=== PATIENT | female | born 1980 ===

== ENCOUNTER 2016-09-08 08:57 | Inpatient (IN) | payer MEDICAID, SELFPAY ==
[2016-09-08 10:20] VITALS: BMI 44.3
[2016-09-08] MEDS ORDERED: Lactated Ringer's 1,000 ML IV SCH (11:49)
[2016-09-08 12:36] LABS: HEMATOCRIT 35.3 % (34.0-47.0); MEAN CELL VOLUME 77.9 fl (81.0-99.0); MEAN CORPUSCULAR HGB CONC 32.1 g/dL (33.0-37.0); RED CELL DISTRIBUTION WIDTH 16.3 % (11.5-14.5); WHITE BLOOD COUNT 6.4 K/uL (4.8-10.8)
--- NOTE | 2016-09-08 12:45 | OBHP ---
Datetime: 09/08/2016 10:14 IP Adm Impression: Term, intrauterine ; Intact Membranes IP Chief Complaint Other: RLQ Pain IP Admit Plan: Observation/Evaluation Admit Comment, IP Provider: 36 y/o @ 39.4 weeks via 12 week u/s dating presents complaining of RLQ. Pain started at 5:30am while the pt was sleeping. Denies inciting event. Pain is 7/10, constant, located in the RLQ, dull in character, radiates to her anterior right thigh and she is unable to yvette ntify alleviating/exacerbating factors. 1st episode of such pain. Last sexual activity was 1 week ago . Associated with mild nausea. Denies PO intake today. Last BM last night. Denies fever/chills, heada ches, visual disturbances, CP/SOB, V/D/C, urinary symptoms. Denies VB/LOF/CTX and reports good FM. PMD: CFH POBHx: NSVDx2, FT, Hx of macrosomnia. PMHx: morbid obesity PsurgHx: none Meds: PNVs ALL: NKDA Social: denies ETOH, tobacco, drug abuse A/P: 36 y/o @ 39.4 weeks via 12wk u/s dating for evaluation of RLQ pain. -likely secondary to position -UA -CBC -Tylenol 650mg PRN pain -observation Epi Nielsen MD PGY1 @ 10:56am [facility] ADDENDUM: pt seen _ examined by me. Agree with above. s: pt states rlq pain beginning in midportion of abd and extending inferiroly toward groin. she h ad 1 episode of nausea today, no emesis.. I: As above h/o of Rt Ov Cyst with us on 01/31 1.9cm. MFM US 9cm. MRI unable to visualize Rt side Pain Most likely 2ndary to fetus positon P: labs pending. Pelvic Type - PN: Adequate Extremities - PN: Normal Abdomen - PN: Normal Back - PN: Normal Breast - PN: Normal Lungs - PN: Normal Heart - PN: Normal Thyroid - PN: Normal Neurologic - PN: Normal HEENT - PN: Normal General - PN: Normal FHR - Baseline A Provider: 130 Membranes, Provider: Intact Comments, ACOG Physical Exam: abd: +BS, soft, no tenderness in RLQ, remainder of abdomen unremarkabl e. ND, no guarding/rigidity. Obturator/Psoas/Rovsings negative. back: neg CVA tenderness b/l Transvag us 01/31:5.6wks; 1.9cm rt complex ovar cyst Growth us 04/03:16.3wkes; 8.94 x 6.22 x8.86cm right ovarian cyst Pelvic MRI on 04/17: unable to visualize cyst IP Hx Assessment: The History has been Reviewed and is Current Vital Signs Provider: Reviewed; Within Normal Limits IP Chief Complaint: Maternal discomfort NICHD Variability Prov Fetus A: Moderate 6-25bpm NICHD Accel Fetus A IP Provider: 15X15 FHR Category Provider Fetus A: Category I NICHD Decel Fetus A IP Provider: None Dilatation, Provider: 1cm Effacement, Provider: thick Station, Provider: high Genitourinary Exam: Normal DTRs - PN: Normal
[2016-09-08] MEDS: Lactated Ringer's 1,000 ML IV SCH ×3 (13:00→18:30)
[2016-09-08 13:02] LABS: RBC URINE 27 /hpf (0-3); URINE BACTERIA RARE (<OCC); URINE BILIRUBIN NEGATIVE (NEGATIVE); URINE BLOOD MODERATE (NEGATIVE); URINE COLOR AMBER (YELLOW); URINE GLUCOSE (UA) NEG (Normal); URINE KETONE NEGATIVE (NEGATIVE); URINE LEUKOCYTE ESTERASE LARGE Leu/uL (Negative); URINE PROTEIN 30 mg/dL (NEGATIVE); URINE UROBILINOGEN 0.2-1.0 mg/dL (0.2-1.0); WBC CLUMPS FEW /hpf; WBC URINE 281 /hpf (0-5)
[2016-09-08 14:07] LABS: RBC URINE 7 /hpf (0-3); URINE BACTERIA FEW (<OCC); URINE BILIRUBIN NEGATIVE (NEGATIVE); URINE BLOOD NEGATIVE (NEGATIVE); URINE CALCIUM OXALATE CRYSTALS RARE /hpf (<OCC); URINE COLOR YELLOW (YELLOW); URINE GLUCOSE (UA) NEG (Normal); URINE KETONE 20 mg/dL (NEGATIVE); URINE LEUKOCYTE ESTERASE LARGE Leu/uL (Negative); URINE PROTEIN NEGATIVE (NEGATIVE); URINE UROBILINOGEN 0.2-1.0 mg/dL (0.2-1.0); WBC URINE 66 /hpf (0-5)
[2016-09-08] MEDS ORDERED: Amoxicillin-Clav 500-125 mg Tab PO SCH (14:29)
[2016-09-08] MEDS ORDERED: cefTRIAXone (Rocephin) 1 gm Inj IM ONE (15:46)
--- NOTE | 2016-09-08 15:47 | US ---
PROCEDURE: Renal ultrasound dated 09/08/2016 HISTORY: Possible sible R renal calculus. Hematuria. Patient also has history of prior right ovarian cyst. COMPARISON: None available. TECHNIQUE: Sonogram of the kidneys. FINDINGS: RIGHT KIDNEY: Measures approximately 12.3 x 4.7 x 5.4 cm. The slightly fullness of the right renal collecting system however no definitive shadowing calculi identified. Note however the possibility of a distal ureteral calculi cannot be excluded. Normal in size, contour and echogenicity. No the solid mass lesion or hydronephrosis visualized. LEFT KIDNEY: Measures approximately 12.8 x 4.6 x 4.8 cm Normal in size, contour and echogenicity. No stone, solid mass lesion or hydronephrosis visualized. OTHER FINDINGS: There is a elliptical shaped fluid collection in the right aspect of the pelvis that measures approximately 12.9 x 6.4 x 5.5 cm. This could represent right ovarian cyst. IMPRESSION: Mild fullness right renal collecting system however no definitive shadowing calculi seen. Note the possibility of a distal ureteral calculus cannot be excluded. Large elliptical shaped cystic focus right aspect of the pelvis possibly representing a large right ovarian cyst. This case was discussed with OB hospitalist Dr. Tang at approximately 3:44 p.m. with written down and read back verification.
[2016-09-08] MEDS ORDERED: Nalbuphine 20 mg/ml Inj (1 ml) IVP PRN (16:08)
[2016-09-08 17:00] VITALS: BP 123/68; PULSE 63; RESP 18; TEMP 97.7; O2SAT 99
[2016-09-08] MEDS ORDERED: Lactobacillus Acidophilus 500 MU Cap PO SCH (17:00)
--- NOTE | 2016-09-08 22:28 | OBPN ---
Datetime: 09/08/2016 15:52 IP Progress Plan: Induction Membranes, Provider: Intact FHR - Baseline A Provider: 130 Presentation-Admit: Vertex IP Progress Note Comment: s: pt denies right sided abd pain. rates ctxs 04/27. denies sorm I: 39.4wks Induction UTI Candidiasi P: for cytotec #2 On Ceftriaxone Tx candidiasis PP Vital Signs Provider: Reviewed; Within Normal Limits NICHD Accel Fetus A IP Provider: 15X15 NICHD Variability Prov Fetus A: Moderate 6-25bpm Dilatation, Provider: 1 Effacement, Provider: 60 Station, Provider: -3 NICHD Decel Fetus A IP Provider: None Datetime: 09/08/2016 10:14 FHR Category Provider Fetus A: Category I
[2016-09-09] MEDS: Lactated Ringer's 1,000 ML IV SCH (01:41)
[2016-09-09] MEDS ORDERED: Oxytocin 30 units/LR 500ML 30 U/500 ML BAG IV SCH (07:00)
[2016-09-09] MEDS ORDERED: Oxytocin 30 units/LR 500ML 30 U/500 ML BAG IV ONE ×4 (07:00→12:42)
[2016-09-09] MEDS ORDERED: Oxycodone/Acetaminophen 5/325 mg Tab PO PRN ×2 (12:10→12:42)
[2016-09-09] MEDS ORDERED: Nalbuphine 20 mg/ml Inj (1 ml) IVP PRN (12:42)
[2016-09-09] MEDS ORDERED: Lactated Ringer's 1,000 ML IV SCH (12:42)
--- NOTE | 2016-09-09 12:54 | OBDS ---
DELIVERY PERSONNEL Delivery Doctor: Abby Munson MD Traveling Sales Executive: Brittany Way RN Anesthesiologist: Dr Biggs MATERNAL INFORMATION Delivery Anesthesia: Local; Epidural Medications in Delivery: rocephin, nubain, cytotec, augmentin, pitocin, tylenol Estimated Blood Loss (ml): 300 Placenta Cultured: No Maternal Complications: None RN Comments: pt delivered viable baby girl, apgars were 9 and 9. [facility] dried [facility]. pt was repaired for 2nd degree lac. pitocin infusing @999ml/hr. infant placed on warmer. pt and remained in stable condition. pt VSS. given to pt for skin to skin and latching. Provider Comments: Delivered a live baby girl at 11:55 AM the baby was bulb suctioned on the perineu m and transferred to maternal chest. The cord was clamped and cut 3 vessels noted cord blood was obta ined and sent to the lab. The placenta was delivered at 1159 intact, the estimated blood loss was 300 mL. Pitocin was administered to assist in uterine involution. There was second-degree laceration whi ch was repaired with 2-0 Rapide. The mother tolerated the procedure well and the baby went to the [facility] baby nursery with Apgars of 9 and 9 weighing 3700 g LABOR SUMMARY EDC: 09/11/2016 00:00 No. Babies in Womb: 1 Attempted: No Labor Anesthesia: Epidural LABOR INFORMATION Reason for Induction: Not Applicable Onset of Labor: 09/09/2016 10:00 Complete Dilatation: 09/09/2016 11:45 Cervical Ripening Agents: Cytotec @ (Annotations: 50mcg given orally per MD's order. ) Oxytocin: Augmentation Group B Beta Strep: Negative Steroids Given: None Reason Steroids Not Administered: Not Applicable MEMBRANES Membranes Rupture Method: Artificial Rupture of Membranes: 09/09/2016 10:00 Length of Rupture (hrs): 1.90 Amniotic Fluid Color: Clear Amniotic Fluid Amount: Small Amniotic Fluid Odor: Normal STAGES OF LABOR Stage 1 hrs: 1 Stage 1 min: 45 Stage 2 hrs: 0 Stage 2 min: 9 Stage 3 hrs: 0 Stage 3 min: 5 Total Time in Labor hrs: 1 Total Time in Labor min: 59 VAGINAL DELIVERY Laceration Extension: Second Degree Laceration Type: Perineal Laceration Repair: Yes Initial Vag Sponge Count: 5 Final Vag Sponge Count: 5 Initial Vag Sharps Count: 2 Final Vag Sharps Count: 2 Sponge Count Correct: Yes Sharps Count Correct: Yes BABY A INFORMATION Infant Delivery Date/Time: 09/09/2016 11:54 Method of Delivery: Vaginal Born in Route : No Forceps: N/A SHOULDER DYSTOCIA BABY A Delivery Date/Time: 09/09/2016 11:54 PRESENTATION/POSITION BABY A Presentation: Cephalic PLACENTA INFORMATION BABY A Placenta Delivery Time : 09/09/2016 11:59 Placenta Method of Delivery: Spontaneous Placenta Status: Delivered SCORES BABY A Heart Rate 1 min: >100 bpm Resp Effort 1 min: Good Cry Reflex Irritability 1 min: Cough or Sneeze or Pulls Away Muscle Tone 1 min: Active Motion Color 1 min: Body [place], Extremities Blue Resuscitation Effort 1 min: N/A SCORE 1 MIN: 9 Heart Rate 5 min: >100 bpm Resp Effort 5 min: Good Cry Reflex Irritability 5 min: Cough or Sneeze or Pulls Away Muscle Tone 5 min: Active Motion Color 5 min: Body [place], Extremities Blue Resuscitation Effort 5 min: N/A SCORE 5 MIN: 9 INFANT INFORMATION BABY A Gestational Age at Delivery: 39.0 Gestational Status: Term Outcome : Liveborn Condition : Stable Sex: Female WEIGHT/LENGTH BABY A Infant Birthweight (gms): 3700 Weight (lb): 8 Weight (oz): 2 CORD INFORMATION BABY A No. Cord Vessels: 3 Cord Blood Taken: Yes Infant Suction: Mouth
[2016-09-09] MEDS: Lactobacillus Acidophilus 500 MU Cap PO SCH (17:04)
[2016-09-09] MEDS: Amoxicillin-Clav 500-125 mg Tab PO SCH (21:02)
[2016-09-10 05:33] LABS: BASO % 0.3 % (0.0-2.0); EOS # 0.4 K/uL (0.0-0.7); HEMATOCRIT 24.1 % (34.0-47.0); LYMPH # 2.4 K/uL (1.0-4.3); LYMPH % 29.3 % (20.0-40.0); MEAN CELL VOLUME 77.7 fl (81.0-99.0); MEAN CORPUSCULAR HGB CONC 32.1 g/dL (33.0-37.0); MONO # 0.7 K/uL (0.0-0.8); MONO % 8.3 % (0.0-10.0); NEUT # 4.7 K/uL (1.8-7.0); NEUT % 57.1 % (50.0-75.0); WHITE BLOOD COUNT 8.2 K/uL (4.8-10.8)
--- NOTE | 2016-09-10 08:54 | OBPPN ---
Datetime: 09/10/2016 07:11 PP Pain Prov: Within normal limits PP Nausea Prov: Denies PP Flatus Prov: Yes PP BM Prov: No PP Breasts Prov: Normal PP Heart Prov: Normal PP Lungs Prov: Normal PP Abdomen/Uterus Prov: Normal PP Lochia Prov: Normal PP Vulva/Perineum Prov: Normal PP CVA Tenderness Prov: Normal PP Extremities Prov: Normal PP C/S Incision Prov: Not Applicable PP Progress Prov: Normal PP Comments Phys Exam Prov: abd: +BS, soft, Mild tenderness to palpation around fundus. ND, no guard ing/rigidity. Fundus firm below level of umbilicus. back: neg CVA tenderness b/l ext: calves NT b/l, homans neg b/l PP Impression Prov: Normal progression PP Plan Prov: Continue present management PP Progress Note Prov: pt seen and examined at bedside this morning. No acute events overnight. Pt r eports mild abdominal pain that is controlled with PO Motrin. OOB/ambulating without difficulty. Tole rtating PO intake without difficulty. +flatus, no BM yet. without difficulty, supplemen ting with bottlefeeding prn. Lochia is equal to menses. Voiding w/o difficulty. Pt denies fever/chill s, headaches, visual disturbances, CP/SOB/palpitations, N/V/D/C, urinary symptoms, numbness/tingling, leg pain. A/P: 36 y/o now s/p on 09/09/16, afebrile, pain controlled with medicaitons, tolerating PO intake, doing well on PPD#1. -continue current mangement -Ibuprofen 600mg PO PRN Q6H for pain -Continue Augmentin PO BID for UTI -reg diet -Ambulation encouraged -continue -anticipate DC on 09/11/2016 Epi Nielsen MD PGY1 @ 7:18am Addendum by Dr. Reyes: Patient seen and evaluated independentlyand I agree with the above. patient is a day 1, recovering well, continue orders, possible discharge for tomorrow Vital Signs Provider PP: Reviewed; Within Normal Limits
[2016-09-10] MEDS ORDERED: Benzocaine/Menthol SPRAY TOP PRN (09:38)
[2016-09-10] MEDS: Lactobacillus Acidophilus 500 MU Cap PO SCH ×2 (10:30→17:17)
[2016-09-10] MEDS: Amoxicillin-Clav 500-125 mg Tab PO SCH ×2 (10:30→20:49)
[2016-09-11] MEDS: Lactobacillus Acidophilus 500 MU Cap PO SCH (09:17)
[2016-09-11] MEDS: Amoxicillin-Clav 500-125 mg Tab PO SCH (09:17)
--- NOTE | 2016-09-11 18:45 | OBDCSUM ---
Datetime: 09/11/2016 05:19 Follow up at, Provider: [facility] Disch Instr Activity: Normal activity; May be up to bathroom; May be up for meals; May Shower Discharge Time: 09/11/2016 12:00 Follow up in weeks, Provider: 4 to 6 weeks Disch Activity Restrictions: No sexual activity; Nothing in vagina - [place], tampons, douche
--- NOTE | 2016-09-11 18:45 | OBPPN ---
Datetime: 09/11/2016 05:16 PP Pain Prov: Within normal limits PP Nausea Prov: Denies PP Flatus Prov: Yes PP BM Prov: Yes PP Breasts Prov: Not Done PP Heart Prov: Normal PP Lungs Prov: Normal PP Abdomen/Uterus Prov: Normal PP Lochia Prov: Normal PP Vulva/Perineum Prov: Not Done PP CVA Tenderness Prov: Not Done PP Extremities Prov: Not Done PP C/S Incision Prov: Not Applicable PP Progress Prov: Normal PP Impression Prov: Normal progression PP Plan Prov: Continue present management; Antibiotic therapy; Discharge PP Progress Note Prov: 36 y/o now seen and examined at bedside. Patient had uneventful overnig ht. Patient reports mild pelvic pain controlled w/ pain meds. Tolerating PO antibiotics. OOB/Ambul ating w/o dizziness. Breast/bottle feeding w/o difficulty. Tolerating PO diet well. Lochia is less than menses in volume. Voiding freely w/ no blood noted. Reports bowel movement. Denies fevers, c hills, n/v/d, CP/SOB, lightheadedness and calf pain. PE: GEN: A_O, resting comfortably in bed, NAD Lung: CTA B/L, no wheezing, rhonchi, or rales CVS: S1, S2 wnl, RRR Abd: +BS, firm fundus below umbilicus. EXT: no edema, negative Shelley's, calves non-tender Assessment: 36 y/o now s/p on 09/09/2016 @ 11:54 tolerating pain w/ medication, tolerati ng oral intake, adequate urine output, doing well on PPD2. Plan: Percocet 5/325 mg 1-2 tabs PO Q6h prn for mod/severe pain. Ibuprofen 600 mg 1 tab Q6h PO pr n for mild pain. Encourage breast feeding and ambulation. D/C today 09/11/2016 Doe Callejas M.D. Account Analyst PGY-1 obh addendum: pt seen _ examined by me. mario with above assessment and plan. IP PP Procedures: None Vital Signs Provider PP: Reviewed; Within Normal Limits
== END 2016-09-11 13:40 | disposition home or self-care (01) | DRG 372 ==
LOC: H.EROB2 08:57 → H.EROB 09:15 → H.L&D 15:43 → H.EROB2 15:43 → H.OB/GYN 09-09 14:30
PROVIDERS: ADMIT Obstetrics & Gynecology; ATTEND Obstetrics & Gynecology
PROC: 4A1HXCZ Monitoring of Products of Conception, Cardiac Rate, External Approach (ICD-10-PCS; 2016-09-08)
PROC: 0KQM0ZZ Repair Perineum Muscle, Open Approach (ICD-10-PCS; principal; 2016-09-09)
PROC: 10E0XZZ Delivery of Products of Conception, External Approach (ICD-10-PCS; 2016-09-09)
DX: O70.1 Second degree perineal laceration during delivery (principal); O75.3 Other infection during labor; N39.0 Urinary tract infection, site not specified; O34.83 Maternal care for other abnormalities of pelvic organs, third trimester; Z37.0 Single live birth; Z3A.39 39 weeks gestation of pregnancy

== ENCOUNTER 2017-04-10 18:29 | Emergency (ER) | payer SELFPAY ==
[2017-04-10 18:29] VITALS: BMI 44.3
[2017-04-10 19:21] VITALS: BP 132/74; PULSE 91; RESP 16; TEMP 97.6; O2SAT 100
--- NOTE | 2017-04-10 20:15 | ED PDOC ---
HPI: Abdomen Time Seen by Provider: 04/10/17 19:45 Chief Complaint (Nursing): Abdominal Pain Chief Complaint (Provider): Abdominal Pain, back pain, leg pain History Per: Patient History/Exam Limitations: no limitations Onset/Duration Of Symptoms: Days (x3) Current Symptoms Are (Timing): Still Present Additional Complaint(s): 36-year-old female presents to the emergency department complaining of right side back pain, abdominal pain and right leg pain, onset 2-3 days ago. Patient denies any associated fever, chills, vomiting, diarrhea, dysuria, or hematuria. Of note, she reports having a known right ovarian cyst for the past 2 years. Patient took Motrin yesterday which did help the pain. She rates current pain as 4/10. Patient is s/p vaginal delivery 6 months ago and is currently breast- feeding. She denies any vaginal discharge or bleeding at this time. PMD: None Past Medical History Reviewed: Historical Data, Nursing Documentation, Vital Signs Vital Signs: Last Vital Signs Temp 97.6 F 04/10/17 19:19 Pulse 91 H 04/10/17 19:19 Resp 16 04/10/17 19:19 BP 132/74 04/10/17 19:19 Pulse Ox 100 04/10/17 21:24 - Medical History PMH: Kidney Stones Other PMH: Right ovarian cyst - Surgical History Surgical History: No Surg Hx - Family History Family History: States: No Known Family Hx - Living Arrangements Living Arrangements: With Family - Social History Current smoker - smoking cessation education provided: No Alcohol: None Drugs: Denies - Home Medications Home Medications: Ambulatory Orders Medication Instructions Recorded Oxycodone HCl/Acetaminophen 1 tab PO Q6 PRN #12 tab 09/09/14 [Percocet 325 mg-5 mg] Amoxicillin/Clavulanate [Augmentin 1 tab PO BID #16 tab 09/11/16 500 MG-125 MG] Ferrous Sulfate [Feosol] 325 mg PO TID #90 tab 09/11/16 Ibuprofen [Motrin] 600 mg PO Q6 PRN #30 tab 09/11/16 - Allergies Allergies/Adverse Reactions: Allergies Allergy/AdvReac Type Severity Reaction Status Date / Time No Known Allergies Allergy Verified 09/09/14 03:02 Review of Systems ROS Statement: Except As Marked, All Systems Reviewed And Found Negative Constitutional: Negative for: Fever, Chills Cardiovascular: Negative for: Chest Pain Respiratory: Negative for: Cough Gastrointestinal: Positive for: Abdominal Pain (right lower (h/o ovarian cyst)) . Negative for: Vomiting, Diarrhea Genitourinary Female: Negative for: Dysuria, Frequency, Incontinence, Hematuria , Vaginal Discharge, Vaginal Bleeding Physical Exam - Reviewed Nursing Documentation Reviewed: Yes Vital Signs Reviewed: Yes - Physical Exam Appears: Positive for: Well, Non-toxic, No Acute Distress Head Exam: Positive for: ATRAUMATIC, NORMAL INSPECTION, NORMOCEPHALIC Skin: Positive for: Normal Color. Negative for: Rash Eye Exam: Positive for: Normal appearance Cardiovascular/Chest: Positive for: Regular Rate, Rhythm Respiratory: Positive for: Normal Breath Sounds. Negative for: Respiratory Distress Gastrointestinal/Abdominal: Positive for: Bowel Sounds (normoactive in all 4 quadrants), Soft, Tenderness (minimal tenderness at right lower quadrant/right adnexal region). Negative for: Guarding, Rebound Back: Positive for: Vertebral Tenderness (slight right lower lumbar tenderness) , Other (negative bilateral straight leg raise). Negative for: L CVA Tenderness , R CVA Tenderness, Decreased ROM, Muscle Spasm Neurologic/Psych: Positive for: Alert, Oriented, Gait (steady) - Laboratory Results Result Diagrams: 04/10/17 20:51 04/10/17 20:51 Urine POC: Negative Urine dip results: Negative for: Leukocyte Esterase, Blood, Nitrate, Ketones, Glucose, Bilirubin, Protein - ECG O2 Sat by Pulse Oximetry: 100 (RA) Pulse Ox Interpretation: Normal Medical Decision Making Medical Decision Making: Initial Impression: 36-year-old with abdominal pain, back pain and leg pain Time: 20:25 Plan: Urine Preg Urine Dip CMP CBC with differential Pain meds offered upon arrival but she declined. Labs reviewed, and are grossly normal. U dip negative. Patient has known history of right ovarian cyst, abdominal exam is benign, patient is resting comfortably in ED. No WBC count noted. Patient was advised to follow-up with clinic for further evaluation. Patient agrees with plan. Prior to discharge patient was given Tylenol 650 mg. Scribe Attestation: Documented by Telma Goyal, acting as a scribe for Joan Neal PA-C Provider Scribe Attestation: All medical record entries made by the Scribe were at my direction and personally dictated by me. I have reviewed the chart and agree that the record accurately reflects my personal performance of the history, physical exam, medical decision making, and the department course for this patient. I have also personally directed, reviewed, and agree with the discharge instructions and disposition. Disposition - Clinical Impression Clinical Impression: Ovarian cyst, Back pain - Patient ED Disposition Is Patient to be Admitted: No Counseled Patient/Family Regarding: Studies Performed, Diagnosis, Need For Followup - Disposition Referrals: [facility] [Outside] Disposition: Routine/Home Disposition Time: 21:29 Condition: STABLE Additional Instructions: Take Tylenol or Motrin for pain as needed. Follow-up with women's clinic in 2-3 days. Instructions: Back Pain (ED), Ovarian Cyst (ED) Forms: [employer] ([place]ian) Results - Lab Results Lab Results: 04/10/17 04/10/17 20:51 20:51 WBC 8.6 RBC 5.03 Hgb 12.4 D Hct 39.3 MCV 78.0 L MCH 24.7 L MCHC 31.6 L RDW 15.0 H Plt Count 273 D MPV 9.0 Neut % (Auto) 60.4 Lymph % (Auto) 27.1 Cecil % (Auto) 7.5 Eos % (Auto) 4.2 H Baso % (Auto) 0.8 Neut # 5.2 Lymph # 2.3 Cecil # 0.6 Eos # 0.4 Baso # 0.1 Sodium 140 Potassium 4.4 Chloride 102 Carbon Dioxide 30 Anion Gap 12 BUN 10 Creatinine 0.7 Est GFR ( Amer) > 60 Est GFR (Non-Af Amer) > 60 Random Glucose 102 Calcium 9.1 Total Bilirubin 0.2 AST 25 ALT 34 Alkaline Phosphatase 68 Total Protein 7.7 Albumin 3.9 Globulin 3.8 Albumin/Globulin Ratio 1.0
[2017-04-10 20:57] LABS: BASO # 0.1 K/uL (0.0-0.2); BASO % 0.8 % (0.0-2.0); EOS # 0.4 K/uL (0.0-0.7); EOS % 4.2 % (0.0-4.0); HEMOGLOBIN 12.4 g/dL (12.0-16.0); LYMPH # 2.3 K/uL (1.0-4.3); LYMPH % 27.1 % (20.0-40.0); MEAN CORPUSCULAR HEMOGLOBIN 24.7 pg (27.0-31.0); MEAN CORPUSCULAR HGB CONC 31.6 g/dL (33.0-37.0); MONO # 0.6 K/uL (0.0-0.8); MONO % 7.5 % (0.0-10.0); NEUT # 5.2 K/uL (1.8-7.0); NEUT % 60.4 % (50.0-75.0); NRBC % 0.1 % (0.0-0.0); RBC 5.03 Mil/uL (3.80-5.20); WHITE BLOOD COUNT 8.6 K/uL (4.8-10.8)
[2017-04-10 21:16] LABS: ALBUMIN 3.9 g/dL (3.5-5.0); ALT/SGPT 34 U/L (9-52); AST/SGOT 25 U/L (14-36); BLOOD UREA NITROGEN 10 mg/dl (7-17); CALCIUM 9.1 mg/dL (8.4-10.2); GFR AFRICAN-AMERICAN > 60; GFR NON-AFRICAN AMERICAN > 60
== END 2017-04-10 21:38 | disposition home or self-care (01) ==
LOC: H.ER 18:29
DX: N83.201 Unspecified ovarian cyst, right side (principal); Z87.442 Personal history of urinary calculi; M79.604 Pain in right leg

== ENCOUNTER 2018-02-05 10:28 | Emergency (ER) | payer OTHER ==
[2018-02-05 10:28] VITALS: BMI 44.3
[2018-02-05 10:43] VITALS: PULSE 66; RESP 18; TEMP 97.5; O2SAT 100
[2018-02-05] MEDS ORDERED: Morphine 4 MG/ML VIAL IVP STA (11:03)
--- NOTE | 2018-02-05 11:07 | ED PDOC ---
HPI: Abdomen Time Seen by Provider: 02/05/18 11:05 Chief Complaint (Nursing): Abdominal Pain Chief Complaint (Provider): abdominal pain History Per: Patient (37 y/o female here with RLQ pain noted x 1 day today. 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 Denies any nausea/vomiting/fevers/chills. Denies any abdominal surgeries in past.) Past Medical History Reviewed: Historical Data, Nursing Documentation, Vital Signs Vital Signs: Last Vital Signs Temp 97.5 F L 02/05/18 10:48 Pulse 66 02/05/18 10:48 Resp 18 02/05/18 10:48 BP 113/76 02/05/18 10:48 Pulse Ox 100 02/05/18 10:48 - Medical History PMH: Kidney Stones - Family History Family History: States: Unknown Family Hx - Home Medications Home Medications: Ambulatory Orders Medication Instructions Recorded Oxycodone HCl/Acetaminophen 1 tab PO Q6 PRN #12 tab 09/09/14 [Percocet 325 mg-5 mg] Amoxicillin/Clavulanate [Augmentin 1 tab PO BID #16 tab 09/11/16 500 MG-125 MG] Ferrous Sulfate [Feosol] 325 mg PO TID #90 tab 09/11/16 Ibuprofen [Motrin] 600 mg PO Q6 PRN #30 tab 09/11/16 Naproxen 375 mg PO Q8 PRN #21 tablet 02/05/18 - Allergies Allergies/Adverse Reactions: Allergies Allergy/AdvReac Type Severity Reaction Status Date / Time No Known Allergies Allergy Verified 02/05/18 10:53 Review of Systems ROS Statement: Except As Marked, All Systems Reviewed And Found Negative Gastrointestinal: Positive for: Abdominal Pain Physical Exam - Reviewed Nursing Documentation Reviewed: Yes Vital Signs Reviewed: Yes - Physical Exam Appears: Positive for: Well, Non-toxic, No Acute Distress Head Exam: Positive for: ATRAUMATIC, NORMAL INSPECTION, NORMOCEPHALIC Skin: Positive for: Normal Color, Warm, DRY Eye Exam: Positive for: EOMI, Normal appearance, PERRL ENT: Positive for: Normal ENT Inspection Neck: Positive for: Normal, Painless ROM Cardiovascular/Chest: Positive for: Regular Rate, Rhythm Respiratory: Positive for: CNT, Normal Breath Sounds Gastrointestinal/Abdominal: Positive for: Normal Exam (Obese abdomen.), Soft, Tenderness (right lower quadrant tenderness.) Pelvic Exam: Positive for: Tender Adnexa (RIGHT ADNEXA TENDERNES) Back: Positive for: Normal Inspection. Negative for: R CVA Tenderness Extremity: Positive for: Normal ROM Neurologic/Psych: Positive for: Alert, Oriented - Laboratory Results Result Diagrams: 02/05/18 11:00 02/05/18 11:00 - ECG O2 Sat by Pulse Oximetry: 100 - Progress ED Course And Treament: d/w Dr. Munson. Will wait for US reading prior to evaluation. Seen by Dr. Munson. Patient to be d/c home and f/u outpatient for evaluation and removal of large cyst. Medical Decision Making Medical Decision Making: Time: 13:[address] FINDINGS: LOWER THORAX: 6 mm benign-appearing calcified peripheral granuloma lateral left lower lobe not appreciated on the 2015 study Mild dependent subpleural lines trace discoid atelectasis LIVER: Diffuse fatty infiltration No gross lesion or ductal dilatation. GALLBLADDER AND BILE DUCTS: Unremarkable. PANCREAS: Unremarkable. No gross lesion or ductal dilatation. SPLEEN: Unremarkable. ADRENALS: Unremarkable. No mass. KIDNEYS AND URETERS: Unremarkable. No hydronephrosis. No solid mass. VASCULATURE: Unremarkable. No aortic aneurysm. No aortic atherosclerotic calcification or mural plaque present. BOWEL: Unremarkable. No obstruction. No gross mural thickening. APPENDIX: Normal appendix. PERITONEUM: Unremarkable. No free fluid. No free air. LYMPH NODES: Unremarkable. No enlarged lymph nodes. BLADDER: Unremarkable. REPRODUCTIVE: The uterus is unremarkable appearing the right ovary is probably identified with tiny ovarian follicles on current axial series 2, image 79. Anterior to the uterus and continuing towards the left anterior hemipelvis bordering an expected left ovarian position are 2 contiguous and/or a single bilobed cystic mass has been noted on the prior CT study from 2014 and also noted on the prior pelvic ultrasound study from 2014. The MRI pelvic exam subsequent to this in 2017 showed an intrauterine gestation present and reported in that neither ovary was visualized. No mention of any adnexal masses were MR mentioned. The current left sided component of this bilobed cystic pelvic mass appears larger than the prior CT suggestion now this measures 7.1 x 4.9 cm the central to right sided component of this bilobed pelvic cystic mass appears very slightly increased in size on the current study compared the prior CT now measuring 8.6 x 5.7 cm. No normal appearing left ovary separate from these bilobed cystic masses are identified. Although the mass is a here cystic were suggested cystic pelvic ultrasound the Hounsfield units on this exam vary between cystic less than 20 and also few mildly negative but not as negative as the subcutaneous fat. Cystic composition is favored BONES: Mild degenerate changes OTHER FINDINGS: Mottled material likely relating to recent food ingestion in the stomach noted. The mild periumbilical fat only containing hernia is similar in appearance with prior CT no bowel containing hernia is noted. IMPRESSION: No appendicitis suggested. No bowel obstruction suggested. Prior CT referenced bilobed pelvic cystic mass is hree suggested on this exam so referenced as cystic on the subsequent pelvic ultrasound study from 09/09/2014. comparing the current CT with the prior CT this cystic mass has increased in size no gross mural nodules are appreciated. A left ovarian or left para ovarian cystic mass is favored. Given its size and its interval increase in size its potential for torsion needs to be considered. Edging Machine Feeder consultation follow-up recommended. Comments: Study marked for PA review . Time: 14:39 FINDINGS: UTERUS: Measures 8.5 x 7.9 x 6.9 cm. Normal in size and retroverted. There is h eterogeneous myometrial echotexture. There is a 1.1 x 1.1 cm well-circumscribed round hyperechoic intramural lesion in the posterior wall of the midbody of the uterus. The lesion is adjacent to the endometrial stripe. ENDOMETRIUM: Measures 19 mm in diameter. Central endometrial echo complex is normal in appearance. CERVIX: No cervical abnormality identified. RIGHT OVARY: Measures 4.2 x 3.6 x 2.9 cm. No solid mass. Normal flow. There is a 1.7 x 1.6 x 1.6 cm complicated cyst. LEFT OVARY: Measures 3.7 x 3.7 x 2.1 cm. No solid mass. Normal flow. There is a 11.6 x 11.4 x 5.5 cm large septated cyst in the left adnexa. FREE FLUID: There is minimal fluid in the left adnexa. OTHER FINDINGS: None. IMPRESSION: 1. 1.1 x 1.1 cm round intramural lesion in the posterior wall of the midbody of the uterus may represent a submucosal fibroid or endometrial polyp. Clinical follow-up is advised. 2. 11.6 x 11.4 x 5.5 cm large septated cyst in the left adnexa, the differential considerations include complicated septated cyst, cystadenoma, cystadenocarcinoma however other cystic masses such as cystic teratoma and peritoneal cysts are also differential considerations. Correlation with MRI of the pelvis without and with intravenous contrast would be helpful for further characterization of both these findings. Disposition - Clinical Impression Clinical Impression: Ovarian mass - Patient ED Disposition Is Patient to be Admitted: No - Disposition [facility] Disposition: Routine/Home Disposition Time: 16:27 Condition: FAIR Prescriptions: Naproxen 375 mg PO Q8 PRN #21 tablet PRN Reason: Pain, Moderate (4-7) Instructions: Ovarian Cyst (DC), Cancer Screening Print Language: SCOTTISH
[2018-02-05] MEDS ORDERED: Morphine 4 MG/ML VIAL ONE (11:22)
[2018-02-05 11:48] LABS: BASO % 0.5 % (0.0-2.0); EOS # 0.2 K/uL (0.0-0.7); HEMOGLOBIN 10.1 g/dL (12.0-16.0); LYMPH # 1.2 K/uL (1.0-4.3); LYMPH % 14.7 % (20.0-40.0); MEAN CORPUSCULAR HEMOGLOBIN 21.3 pg (27.0-31.0); MEAN CORPUSCULAR HGB CONC 30.4 g/dL (33.0-37.0); MEAN PLATELET VOLUME 9.7 fl (7.2-11.7); MONO # 0.5 K/uL (0.0-0.8); MONO % 6.6 % (0.0-10.0); NEUT % 75.2 % (50.0-75.0); RBC 4.76 Mil/uL (3.80-5.20); RED CELL DISTRIBUTION WIDTH 16.7 % (11.5-14.5); WHITE BLOOD COUNT 7.9 K/uL (4.8-10.8)
[2018-02-05 11:50] LABS: ALB/GLOB RATIO 1.1 (1.0-2.1); ALBUMIN 4.1 g/dL (3.5-5.0); ALT/SGPT 21 U/L (9-52); AST/SGOT 24 U/L (14-36); BLOOD UREA NITROGEN 13 mg/dl (7-17); CALCIUM 8.8 mg/dL (8.4-10.2); GFR NON-AFRICAN AMERICAN > 60; LIPASE 72 U/L (23-300)
[2018-02-05 11:50] LABS: URINE BILIRUBIN NEGATIVE (NEGATIVE); URINE BLOOD NEGATIVE (NEGATIVE); URINE CLARITY CLOUDY (Clear); URINE COLOR YELLOW (YELLOW); URINE GLUCOSE (UA) NEG (Normal); URINE LEUKOCYTE ESTERASE MOD Leu/uL (Negative); URINE PROTEIN NEGATIVE (NEGATIVE); URINE UROBILINOGEN 0.2-1.0 mg/dL (0.2-1.0)
[2018-02-05 11:53] LABS: URINE BACTERIA RARE (<OCC)
[2018-02-05] MEDS ORDERED: Iohexol 300 100 ML IJ ONE (12:15)
[2018-02-05] MEDS ORDERED: Sodium Chloride 0.9% 50 ML IV ONE (12:16)
--- NOTE | 2018-02-05 13:14 | CT ---
Date of service: 02/05/2018 PROCEDURE: CT Abdomen and Pelvis with contrast HISTORY: r/o appendicitis COMPARISON: 09/09/2014 CT of the abdomen and pelvis; MR pelvis without contrast 05/01/2016; pelvic ultrasound 09/09/2014 TECHNIQUE: Contrast dose: 95 mL Omnipaque 300 Radiation dose: Total exam DLP = 905.47 mGy-cm. This CT exam was performed using one or more of the following dose reduction techniques: Automated exposure control, adjustment of the mA and/or kV according to patient size, and/or use of iterative reconstruction technique. FINDINGS: LOWER THORAX: 6 mm benign-appearing calcified peripheral granuloma lateral left lower lobe not appreciated on the 2015 study Mild dependent subpleural lines trace discoid atelectasis LIVER: Diffuse fatty infiltration No gross lesion or ductal dilatation. GALLBLADDER AND BILE DUCTS: Unremarkable. PANCREAS: Unremarkable. No gross lesion or ductal dilatation. SPLEEN: Unremarkable. ADRENALS: Unremarkable. No mass. KIDNEYS AND URETERS: Unremarkable. No hydronephrosis. No solid mass. VASCULATURE: Unremarkable. No aortic aneurysm. No aortic atherosclerotic calcification or mural plaque present. BOWEL: Unremarkable. No obstruction. No gross mural thickening. APPENDIX: Normal appendix. PERITONEUM: Unremarkable. No free fluid. No free air. LYMPH NODES: Unremarkable. No enlarged lymph nodes. BLADDER: Unremarkable. REPRODUCTIVE: The uterus is unremarkable appearing the right ovary is probably identified with tiny ovarian follicles on current axial series 2, image 79. Anterior to the uterus and continuing towards the left anterior hemipelvis bordering an expected left ovarian position are 2 contiguous and/or a single bilobed cystic mass has been noted on the prior CT study from 2014 and also noted on the prior pelvic ultrasound study from 2014. The MRI pelvic exam subsequent to this in 2016 showed an intrauterine gestation present and reported in that neither ovary was visualized. No mention of any adnexal masses were MR mentioned. The current left sided component of this bilobed cystic pelvic mass appears larger than the prior CT suggestion now this measures 7.1 x 4.9 cm the central to right sided component of this bilobed pelvic cystic mass appears very slightly increased in size on the current study compared the prior CT now measuring 8.6 x 5.7 cm. No normal appearing left ovary separate from these bilobed cystic masses are identified. Although the mass is a here cystic were suggested cystic pelvic ultrasound the Hounsfield units on this exam vary between cystic less than 20 and also few mildly negative but not as negative as the subcutaneous fat. Cystic composition is favored BONES: Mild degenerate changes OTHER FINDINGS: Mottled material likely relating to recent food ingestion in the stomach noted. The mild periumbilical fat only containing hernia is similar in appearance with prior CT no bowel containing hernia is noted. IMPRESSION: No appendicitis suggested. No bowel obstruction suggested. Prior CT referenced bilobed pelvic cystic mass is hree suggested on this exam so referenced as cystic on the subsequent pelvic ultrasound study from 09/09/2014. comparing the current CT with the prior CT this cystic mass has increased in size no gross mural nodules are appreciated. A left ovarian or left para ovarian cystic mass is favored. Given its size and its interval increase in size its potential for torsion needs to be considered. Nutritional Assistant consultation follow-up recommended. Comments: Study marked for PA review .
--- NOTE | 2018-02-05 14:43 | US ---
Date of service: 02/05/2018 HISTORY: Right adnexal tenderness COMPARISON: None available. TECHNIQUE: Transvaginal pelvic ultrasound was performed. FINDINGS: UTERUS: Measures 8.5 x 7.9 x 6.9 cm. Normal in size and retroverted. There is heterogeneous myometrial echotexture. There is a 1.1 x 1.1 cm well-circumscribed round hyperechoic intramural lesion in the posterior wall of the midbody of the uterus. The lesion is adjacent to the endometrial stripe. ENDOMETRIUM: Measures 19 mm in diameter. Central endometrial echo complex is normal in appearance. CERVIX: No cervical abnormality identified. RIGHT OVARY: Measures 4.2 x 3.6 x 2.9 cm. No solid mass. Normal flow. There is a 1.7 x 1.6 x 1.6 cm complicated cyst. LEFT OVARY: Measures 3.7 x 3.7 x 2.1 cm. No solid mass. Normal flow. There is a 11.6 x 11.4 x 5.5 cm large septated cyst in the left adnexa. FREE FLUID: There is minimal fluid in the left adnexa. OTHER FINDINGS: None. IMPRESSION: 1. 1.1 x 1.1 cm round intramural lesion in the posterior wall of the midbody of the uterus may represent a submucosal fibroid or endometrial polyp. Clinical follow-up is advised. 2. 11.6 x 11.4 x 5.5 cm large septated cyst in the left adnexa, the differential considerations include complicated septated cyst, cystadenoma, cystadenocarcinoma however other cystic masses such as cystic teratoma and peritoneal cysts are also differential considerations. Correlation with MRI of the pelvis without and with intravenous contrast would be helpful for further characterization of both these findings.
--- NOTE | 2018-02-05 15:03 | CP.PCM.CON ---
<Ai Lopez - Last Filed: 02/05/18 17:25> History of Present Illness - History of Present Illness History of Present Illness: OBGYN Consult 37 y/o w h/o ovarian cysts was seen and examined today. As per patient, at about 7am today she began feeling a constant nonradiating, burning sensation in RLQ, 3/10 in nature that worsened to 10/10 by 930am. Patient endorses nausea, but denies any f/c/v, vaginal discharge orbleeding. Patient reports a hx of ovarian cysts, and states she was told previously surgical removal would be necessary, but was unable to follow up because of stress due to of her . OBGYNhx: x 3 (2009, 2012, 2016) LMP: 12/2017; dysmenorrhea PMH: ovarian cysts Meds: Motrin prn pain during menses Allergies: NKA Sochx: denies cigarette, EtOH use or elicit drug use Surghx: denies Famhx: Dad-HTN ROS: all points reviewed and neg unless otherwise mentioned in HPI ED Course: Vitals: 97.5F, 113/76, 66 bpm, RR-18 spo2-100% Interventions: zofran 4 mg, morpine 4mg IV Transvaginal ultrasound: -1.1 x 1.1cm round intramural lesion in posterior wall of midbody of uterus may represent submucosal fibroid or endometrial polp. -11.6 x 11.4 x 5.5 cm large septated cyst in left adnexa, differential considerations include complicated septated cyst, cystadenoma, cystadenocarcinoma however other cystic masses such as cystic teratoma & peritoneal cysts are also differential considerations. A/P: 37 y/o with RLQ pain & tenderness with findings of large left cyst. -Patient currently stable. -Follow up as outpatient with Dr. Hitchcock at [facility] for further intervention ([phone] for scheduling). Past Patient History - Past Social History Smoking Status: Never Smoked - RENAL Hx Kidney Stones: Yes - PSYCHIATRIC Hx Substance Use: No Meds Home Medications: Home Medication List Medication Instructions Recorded Confirmed Type RX: Naproxen 375 mg PO Q8 PRN #21 tablet 02/05/18 Rx Allergies/Adverse Reactions: Allergies Allergy/AdvReac Type Severity Reaction Status Date / Time No Known Allergies Allergy Verified 02/05/18 10:53 Physical Exam - Constitutional Additional comments: obese female laying in supine position - Head Exam Head Exam: ATRAUMATIC, NORMAL INSPECTION - Eye Exam Eye Exam: Normal appearance - Neck Exam Neck exam: Positive for: Full Rom - Respiratory Exam Respiratory Exam: Clear to Auscultation Bilateral. absent: Wheezes - Cardiovascular Exam Cardiovascular Exam: RRR, +S1, +S2 - GI/Abdominal Exam GI & Abdominal Exam: Normal Bowel Sounds, Soft Additional comments: RLQ tenderness, no organomegaly appreciated; no guarding, no rigidity - Extremities Exam Extremities exam: Negative for: calf tenderness, pedal edema - Neurological Exam Neurological exam: Alert, Oriented x3 - Psychiatric Exam Psychiatric exam: Normal Affect - Skin Skin Exam: Dry, Intact Results - Vital Signs Recent Vital Signs: Last Vital Signs Temp 97.5 F L 02/05/18 10:48 Pulse 66 02/05/18 10:48 Resp 18 02/05/18 10:48 BP 113/76 02/05/18 10:48 Pulse Ox 100 02/05/18 14:33 - Labs Result Diagrams: 02/05/18 11:00 02/05/18 11:00 Labs: Laboratory Results - last 24 hr 02/05/18 02/05/18 02/05/18 11:00 11:00 11:17 WBC 7.9 RBC 4.76 Hgb 10.1 L D Hct 33.3 L MCV 70.0 L D MCH 21.3 L MCHC 30.4 L RDW 16.7 H Plt Count 273 MPV 9.7 Neut % (Auto) 75.2 H Lymph % (Auto) 14.7 L [place] % (Auto) 6.6 Eos % (Auto) 3.0 Baso % (Auto) 0.5 Neut # (Auto) 6.0 Lymph # (Auto) 1.2 [place] # (Auto) 0.5 Eos # (Auto) 0.2 Baso # (Auto) 0.0 Sodium 141 Potassium 3.9 Chloride 101 Carbon Dioxide 28 Anion Gap 16 BUN 13 Creatinine 0.7 Est GFR ( Amer) > 60 Est GFR (Non-Af Amer) > 60 Random Glucose 121 H Calcium 8.8 Total Bilirubin 0.2 AST 24 ALT 21 Alkaline Phosphatase 61 Total Protein 7.9 Albumin 4.1 Globulin 3.8 Albumin/Globulin Ratio 1.1 Lipase 72 Urine Color Yellow Urine Clarity Cloudy Urine pH 5.0 Ur Specific [place] 1.025 Urine Protein Negative Urine Glucose (UA) Neg Urine Ketones Negative Urine Blood Negative Urine Nitrate Negative Urine Bilirubin Negative Urine Urobilinogen 0.2-1.0 Ur Leukocyte Esterase Mod Urine Microscopic WBC 18 H Urine Bacteria Rare <Michell Munson - Last Filed: 02/05/18 19:21> Results - Vital Signs Recent Vital Signs: Last Vital Signs Temp 97.5 F L 02/05/18 10:48 Pulse 66 02/05/18 10:48 Resp 18 02/05/18 16:54 BP 115/68 02/05/18 16:54 Pulse Ox 100 02/05/18 16:45 - Labs Result Diagrams: 02/05/18 11:00 02/05/18 11:00 Labs: Laboratory Results - last 24 hr 02/05/18 02/05/18 02/05/18 11:00 11:00 11:17 WBC 7.9 RBC 4.76 Hgb 10.1 L D Hct 33.3 L MCV 70.0 L D MCH 21.3 L MCHC 30.4 L RDW 16.7 H Plt Count 273 MPV 9.7 Neut % (Auto) 75.2 H Lymph % (Auto) 14.7 L [place] % (Auto) 6.6 Eos % (Auto) 3.0 Baso % (Auto) 0.5 Neut # (Auto) 6.0 Lymph # (Auto) 1.2 [place] # (Auto) 0.5 Eos # (Auto) 0.2 Baso # (Auto) 0.0 Sodium 141 Potassium 3.9 Chloride 101 Carbon Dioxide 28 Anion Gap 16 BUN 13 Creatinine 0.7 Est GFR ( Amer) > 60 Est GFR (Non-Af Amer) > 60 Random Glucose 121 H Calcium 8.8 Total Bilirubin 0.2 AST 24 ALT 21 Alkaline Phosphatase 61 Total Protein 7.9 Albumin 4.1 Globulin 3.8 Albumin/Globulin Ratio 1.1 Lipase 72 Urine Color Yellow Urine Clarity Cloudy Urine pH 5.0 Ur Specific [place] 1.025 Urine Protein Negative Urine Glucose (UA) Neg Urine Ketones Negative Urine Blood Negative Urine Nitrate Negative Urine Bilirubin Negative Urine Urobilinogen 0.2-1.0 Ur Leukocyte Esterase Mod Urine Microscopic WBC 18 H Urine Bacteria Rare Assessment & Plan - Assessment and Plan (Free Text) Assessment: The patient was counseled regarding ovarian torsion we discussed signs and symptoms discussed operative intervention we discussed conservative management and follow-up with her HAND I TUBE BENDER after thorough discussion of the risks benefits alternatives of each mode of treatment patient opted to follow-up with her HAND I TUBE BENDER. Signs and symptoms of torsion we discussed the risks were discussed patient decided to proceed with expectant management and close follow-up patient's wishes respected
[2018-02-05 16:56] VITALS: BP 115/68
== END 2018-02-05 16:45 | disposition home or self-care (01) ==
LOC: H.ER 10:28
DX: N83.202 Unspecified ovarian cyst, left side (principal); N83.9 Noninflammatory disorder of ovary, fallopian tube and broad ligament, unspecified
CPT/HCPCS: 74177; 76830; 80053; 81003; 81025; 83690; 85025; 87086; 87491; 87591; 96374; 96375; 99284; J2270; J2405; Q9967

== ENCOUNTER 2018-05-06 09:32 | Emergency (ER) | payer OTHER ==
[2018-05-06 09:32] VITALS: BMI 44.3
--- NOTE | 2018-05-06 10:04 | ED PDOC ---
HPI: Back Time Seen by Provider: 05/06/18 09:55 History Per: Patient Onset/Duration Of Symptoms: Days (1) Current Symptoms Are (Timing): Still Present Quality Of Discomfort: Sharp Severity: Moderate Previous Symptoms: Back Pain Associated Symptoms: None Exacerbating Factor(s): Movement Additional Complaint(s): Low back pain since this AM. No precipitating event. No weakness or parasthesias. No urinary sxs Past Medical History Vital Signs: Last Vital Signs Temp 97.9 F 05/06/18 09:34 Pulse 84 05/06/18 09:34 Resp 18 05/06/18 09:34 BP 125/77 05/06/18 09:34 Pulse Ox 99 05/06/18 09:34 - Medical History PMH: No Chronic Diseases, Kidney Stones - Family History Family History: States: Unknown Family Hx - Home Medications Home Medications: Ambulatory Orders Medication Instructions Recorded Oxycodone HCl/Acetaminophen 1 tab PO Q6 PRN #12 tab 09/09/14 [Percocet 325 mg-5 mg] Amoxicillin/Clavulanate [Augmentin 1 tab PO BID #16 tab 09/11/16 500 MG-125 MG] Ferrous Sulfate [Feosol] 325 mg PO TID #90 tab 09/11/16 Ibuprofen [Motrin] 600 mg PO Q6 PRN #30 tab 09/11/16 Naproxen 375 mg PO Q8 PRN #21 tablet 02/05/18 Cyclobenzaprine [Cyclobenzaprine 10 mg PO Q8 #12 tab 05/06/18 HCl] Naproxen [Naprosyn] 500 mg PO Q12H #20 tab 05/06/18 - Allergies Allergies/Adverse Reactions: Allergies Allergy/AdvReac Type Severity Reaction Status Date / Time No Known Allergies Allergy Verified 02/05/18 10:53 Review of Systems Constitutional: Negative for: Fever Gastrointestinal: Negative for: Abdominal Pain Genitourinary Female: Negative for: Dysuria, Frequency Musculoskeletal: Positive for: Back Pain Neurological: Negative for: Weakness, Numbness Physical Exam - Physical Exam Appears: Positive for: Non-toxic, No Acute Distress Skin: Positive for: Normal Color, Warm, DRY Gastrointestinal/Abdominal: Positive for: Bowel Sounds, Soft. Negative for: Tenderness Back: Positive for: Vertebral Tenderness (sacral tenderness), Muscle Spasm. Negative for: Normal Inspection Neurologic/Psych: Positive for: Alert, Oriented. Negative for: Motor/Sensory Deficits - ECG O2 Sat by Pulse Oximetry: 99 - Progress Re-evaluation Time: 13:07 Condition: Improved Disposition - Clinical Impression Clinical Impression: Back strain - Patient ED Disposition Is Patient to be Admitted: No Counseled Patient/Family Regarding: Diagnosis, Need For Followup, Rx Given - Disposition Referrals: [facility] [Outside] Disposition: Routine/Home Disposition Time: 13:07 Condition: FAIR Prescriptions: Cyclobenzaprine [Cyclobenzaprine HCl] 10 mg PO Q8 #12 tab Naproxen [Naprosyn] 500 mg PO Q12H #20 tab Instructions: Low Back Pain in Adults Print Language: OCCITAN
[2018-05-06 14:01] VITALS: BP 100/59; PULSE 65; RESP 16; TEMP 98.1; O2SAT 100
== END 2018-05-06 14:05 | disposition home or self-care (01) ==
LOC: H.ER 09:32
DX: S39.012A Strain of muscle, fascia and tendon of lower back, initial encounter (principal); X58.XXXA Exposure to other specified factors, initial encounter; Y92.89 Other specified places as the place of occurrence of the external cause
CPT/HCPCS: 81025; 96372; 99284; J1885